=== PATIENT | female | born 1960 | race African-American/Black ===

== ENCOUNTER 2016-07-24 10:02 | Emergency (ER) | payer OTHER ==
[~2016-07-24] VITALS: Ht 167.6 cm; Wt 70.3 kg
[2016-07-24 10:50] LABS: Basophils # (auto) 0 uL; Basophils % (auto) 0.7 % (0.0-2.0); Eosinophils # (auto) 0 uL; Eosinophils % (auto) 0.7 % (0.0-7.0); Hematocrit 40.3 % (36.0-46.0); Hemoglobin 12.8 g/dL (12.2-16.2); Lymphocytes # (auto) 1.4 uL; Lymphocytes % (auto) 22.1 % (10.0-50.0); Mean Corpuscular Hemoglobin 29.1 pg (28.0-32.0); Mean Corpuscular Hgb Conc. 31.7 g/dL (32.0-36.0); Mean Corpuscular Volume 91.6 fL (80.0-100.0); Mean Platelet Volume 8.9 fL (7.4-10.4); Monocytes # (auto) 0.5 uL; Monocytes % (auto) 7.1 % (0.0-12.0); Neutrophils # (auto) 4.5 uL; Neutrophils % (auto) 69.4 % (37.0-80.0); Platelet Count (auto) 276 10^3/uL (140-450); Red Cell Distribution Width 14.4 % (11.6-16.0); White Blood Cell 6.5 10^3/uL (4.4-10.8)
[2016-07-24 11:22] LABS: Albumin 3.6 g/dL (3.4-5.0); BUN/Creatinine Ratio 4.6; Bilirubin, Total 0.3 mg/dL (0.2-1.0); Calcium 9.7 mg/dL (8.5-10.1); Magnesium 2.3 mg/dL (1.6-2.6); Potassium 3.5 mmol/L (3.5-5.1); Total Protein 9.6 g/dL (6.4-8.2)
[2016-07-24 12:04] LABS: INR 0.99 (0.9-1.15); Partial Thromboplastin Time 24.9 sec (22.64-33.71); Prothrombin Time 10.2 sec (9.37-12.3)
[2016-07-24 12:16] LABS: B-Type Natriuretic Peptide 9.51 pg/mL (0-100)
[2016-07-24 12:38] LABS: Temperature: 22.5 C (20.0-25.0)
[2016-07-24] MEDS ORDERED: SODIUM CHLORIDE 0.9% 500 ML IV ONE (13:15)
[2016-07-24 13:29] VITALS: BP 115/73
== END 2016-07-24 14:56 | disposition home or self-care (01) ==
LOC: EDBD 10:02 → ER 10:09
DX: R11.2 Nausea with vomiting, unspecified (principal); I12.0 Hypertensive chronic kidney disease with stage 5 chronic kidney disease or end stage renal disease; N18.6 End stage renal disease; Z99.2 Dependence on renal dialysis; Z88.6 Allergy status to analgesic agent
CPT/HCPCS: 36415; 71010; 80053; 83735; 83880; 84443; 84484; 85025; 85610; 85730; 93005; 96360

== ENCOUNTER 2018-03-24 14:27 | Emergency (ER) | payer OTHER ==
[~2018-03-24] VITALS: Ht 167.6 cm; Wt 88.5 kg
[2018-03-24] MEDS ORDERED: ONDANSETRON HCL 4 MG/2 ML VIAL IV ONE (14:45)
[2018-03-24] MEDS ORDERED: ASPirin 81 mg TAB PO ONE (14:45)
[2018-03-24] MEDS ORDERED: NITROGLYCERIN 0.4 MG SL TAB SL ONE (14:45)
[2018-03-24] MEDS ORDERED: MORPHINE SULFATE 4 MG/ML SYR/VIAL IV ONE (14:45)
[2018-03-24 15:05] LABS: Basophils # (auto) 0 uL; Basophils % (auto) 0.7 % (0.0-2.0); Eosinophils # (auto) 0.1 uL; Hematocrit 29.7 % (36.0-46.0); Hemoglobin 9.9 g/dL (12.2-16.2); Lymphocytes # (auto) 1.2 uL; Lymphocytes % (auto) 29.5 % (10.0-50.0); Mean Corpuscular Hemoglobin 29.9 pg (28.0-32.0); Mean Corpuscular Hgb Conc. 33.2 g/dL (32.0-36.0); Monocytes # (auto) 0.5 uL; Monocytes % (auto) 12.4 % (0.0-12.0); Neutrophils # (auto) 2.2 uL; Neutrophils % (auto) 55.4 % (37.0-80.0); Nucleated Red Blood Cells % 0.1 %; Platelet Count (auto) 167 10^3/uL (140-450); Red Blood Cells 3.29 10^6/uL (4.0-5.20)
[2018-03-24] MEDS: cloNIDine HCL 0.1 MG TAB PO ONE ×2 (15:13→16:39)
[2018-03-24 15:23] LABS: Albumin 2.8 g/dL (3.4-5.0); Magnesium 2.3 mg/dL (1.6-2.6); Potassium 3.3 mmol/L (3.5-5.1)
[2018-03-24 15:28] LABS: Bilirubin, Total 0.3 mg/dL (0.2-1.0); Total Protein 7.3 g/dL (6.4-8.2)
[2018-03-24] MEDS ORDERED: POTASSIUM EFFERVESENT TAB 25 MEQ PO ONE (16:00)
[2018-03-24 19:11] VITALS: BP 122/74
== END 2018-03-24 19:19 | disposition short-term general hospital (02) ==
LOC: ER 14:27
DX: R07.89 Other chest pain (principal); I12.0 Hypertensive chronic kidney disease with stage 5 chronic kidney disease or end stage renal disease; N18.6 End stage renal disease; Z99.2 Dependence on renal dialysis; Z88.6 Allergy status to analgesic agent; Z88.8 Allergy status to other drugs, medicaments and biological substances
CPT/HCPCS: 36415; 71045; 80053; 83735; 84484; 85025; 93005; 94761; 96374; 96375; 99285; J2270; J2405

== ENCOUNTER 2018-09-28 21:21 | Emergency (ER) | payer OTHER ==
[~2018-09-28] VITALS: Ht 167.6 cm; Wt 70.3 kg
[2018-09-28 21:30] VITALS: BP 197/87
[2018-09-28] MEDS: cloNIDine HCL 0.1 MG TAB PO ONE ×2 (22:10→22:11)
[2018-09-28] MEDS: cloNIDine HCL 0.1 MG TAB ONE (22:11)
[2018-09-28 22:56] LABS: Basophils # (auto) 0 uL; Basophils % (auto) 0.6 % (0.0-2.0); Eosinophils # (auto) 0.1 uL; Eosinophils % (auto) 1.4 % (0.0-7.0); Hematocrit 36.2 % (36.0-46.0); Hemoglobin 11.7 g/dL (12.2-16.2); Lymphocytes # (auto) 1.3 uL; Lymphocytes % (auto) 35.9 % (10.0-50.0); Mean Corpuscular Hemoglobin 29.9 pg (28.0-32.0); Mean Corpuscular Hgb Conc. 32.4 g/dL (32.0-36.0); Mean Corpuscular Volume 92.3 fL (80.0-100.0); Monocytes # (auto) 0.7 uL; Monocytes % (auto) 17.7 % (0.0-12.0); Neutrophils # (auto) 1.6 uL; Neutrophils % (auto) 44.4 % (37.0-80.0); Nucleated Red Blood Cells % 0.1 %; Platelet Count (auto) 174 10^3/uL (140-450); Potassium 3.7 mmol/L (3.5-5.1); Red Blood Cells 3.92 10^6/uL (4.0-5.20); Red Cell Distribution Width 18.4 % (11.8-14.3); White Blood Cell 3.7 10^3/uL (4.4-10.8)
[2018-09-28 22:59] LABS: Albumin 3.5 g/dL (3.4-5.0); Calcium 8.9 mg/dL (8.5-10.1)
[2018-09-28 23:04] LABS: BUN/Creatinine Ratio 4.1; Bilirubin, Total 0.3 mg/dL (0.2-1.0); Total Protein 8.4 g/dL (6.4-8.2)
== END 2018-09-29 | disposition left against medical advice (07) ==
LOC: ER 21:21
DX: R51 Headache (principal); R04.0 Epistaxis; Z53.21 Procedure and treatment not carried out due to patient leaving prior to being seen by health care provider
CPT/HCPCS: 36415; 80053; 85025

== ENCOUNTER 2019-05-19 00:08 | Emergency (ER) | payer MEDICARE, OTHER ==
[~2019-05-19] VITALS: Ht 167.6 cm; Wt 68.9 kg
[2019-05-19 01:38] LABS: Albumin 3.4 g/dL (3.4-5.0); BUN/Creatinine Ratio 5.2; Magnesium 2.5 mg/dL (1.6-2.6); Potassium 5.3 mmol/L (3.5-5.1)
[2019-05-19 01:40] LABS: Bilirubin, Total 0.4 mg/dL (0.2-1.0); Total Protein 8.5 g/dL (6.4-8.2)
[2019-05-19 01:42] LABS: Hematocrit 33.3 % (36.0-46.0); Hemoglobin 10.8 g/dL (12.2-16.2); Mean Corpuscular Hemoglobin 29.1 pg (28.0-32.0); Mean Corpuscular Hgb Conc. 32.3 g/dL (32.0-36.0); Mean Corpuscular Volume 90.3 fL (80.0-100.0); Platelet Count (auto) 189 10^3/uL (140-450); Red Blood Cells 3.69 10^6/uL (4.0-5.20); Red Cell Distribution Width 16.1 % (11.8-14.3); White Blood Cell 5.3 10^3/uL (4.4-10.8)
[2019-05-19 01:49] LABS: Band Neutrophils % (manual) 0; Basophils % (manual) 0 (0.0-2.0); Blast Cells 0; Metamyelocytes % 0; Myelocytes % 0; Promyelocytes % 0; Reactive Lymphocytes 0
[2019-05-19] MEDS ORDERED: MORPHINE SULFATE 4 MG/ML SYR/VIAL IV ONE (02:45)
[2019-05-19] MEDS ORDERED: ONDANSETRON HCL 4 MG/2 ML VIAL IV ONE (02:45)
[2019-05-19 03:20] VITALS: BP 180/75
[2019-05-19 05:46] LABS: Eosinophils % (manual) 3 (0-7); Lymphocytes % (manual) 31 (10.0-50.0); Monocytes % (manual) 16 (0-12)
== END 2019-05-19 03:30 | disposition home or self-care (01) ==
LOC: ER 00:10
DX: G43.909 Migraine, unspecified, not intractable, without status migrainosus (principal); I12.0 Hypertensive chronic kidney disease with stage 5 chronic kidney disease or end stage renal disease; N18.6 End stage renal disease; E87.5 Hyperkalemia; Z99.2 Dependence on renal dialysis
CPT/HCPCS: 36415; 70450; 80053; 83735; 85007; 85027; 93005; 96374; 96375; 99284; J2270; J2405

== ENCOUNTER 2019-05-19 08:57 | Emergency (ER) | payer MEDICARE, OTHER ==
[~2019-05-19] VITALS: Ht 167.6 cm; Wt 68.0 kg
[2019-05-19 09:16] VITALS: BP 210/86
== END 2019-05-19 11:39 | disposition left against medical advice (07) ==
LOC: ER 08:57 → EDBD 08:57 → ER 11:39
DX: G43.909 Migraine, unspecified, not intractable, without status migrainosus (principal); I12.0 Hypertensive chronic kidney disease with stage 5 chronic kidney disease or end stage renal disease; N18.6 End stage renal disease; Z99.2 Dependence on renal dialysis; Z88.5 Allergy status to narcotic agent; Z88.8 Allergy status to other drugs, medicaments and biological substances
CPT/HCPCS: 93005

== ENCOUNTER 2021-07-23 07:49 | Emergency (ER) | payer MEDICARE, OTHER ==
[~2021-07-23] VITALS: Ht 167.6 cm; Wt 76.2 kg
[2021-07-23] MEDS ORDERED: cloNIDine HCL 0.1 MG TAB PO ONE (08:15)
[2021-07-23 09:41] LABS: Basophils # (auto) 0 10 ^3/uL (0-0.2); Basophils % (auto) 0.8 % (0.0-2.0); Eosinophils # (auto) 0.1 10 ^3/uL (0-0.8); Eosinophils % (auto) 1.3 % (0.0-7.0); Hematocrit 30.7 % (36.0-46.0); Hemoglobin 9.8 g/dL (12.2-16.2); Lymphocytes # (auto) 0.8 10 ^3/uL (0.4-5.4); Lymphocytes % (auto) 20.3 % (10.0-50.0); Mean Corpuscular Hemoglobin 28.8 pg (28.0-32.0); Mean Corpuscular Hgb Conc. 31.9 g/dL (32.0-36.0); Mean Corpuscular Volume 90.2 fL (80.0-100.0); Monocytes # (auto) 0.6 10 ^3/uL (0-1.3); Monocytes % (auto) 15.2 % (0.0-12.0); Neutrophils # (auto) 2.6 10 ^3/uL (1.6-8.6); Neutrophils % (auto) 62.4 % (37.0-80.0); Nucleated Red Blood Cells % 0.1 %; Red Blood Cells 3.41 10^6/uL (4.0-5.20); Red Cell Distribution Width 15.6 % (11.8-14.3); White Blood Cell 4.1 10^3/uL (4.4-10.8)
[2021-07-23 09:57] LABS: Calcium 8.6 mg/dL (8.5-10.1); Potassium 3.6 mmol/L (3.5-5.1)
[2021-07-23 10:00] LABS: Albumin 3.3 g/dL (3.4-5.0); BUN/Creatinine Ratio 3.8; Bilirubin, Total 0.4 mg/dL (0.2-1.0); Total Protein 8.2 g/dL (6.4-8.2)
[2021-07-23] MEDS ORDERED: HYDROcodone-ACET 5/325MG TAB PO ONE (12:45)
[2021-07-23 14:00] VITALS: BP 179/81
[2021-07-23] MEDS ORDERED: ACET5SOL5 PO (14:38)
== END 2021-07-23 16:17 | disposition home or self-care (01) ==
LOC: ER 07:49 → EDBD 07:49 → ER 15:44
DX: R51.9 Headache, unspecified (principal); E87.8 Other disorders of electrolyte and fluid balance, not elsewhere classified; I12.0 Hypertensive chronic kidney disease with stage 5 chronic kidney disease or end stage renal disease; N18.6 End stage renal disease; R42 Dizziness and giddiness; Z90.710 Acquired absence of both cervix and uterus; Z88.6 Allergy status to analgesic agent
CPT/HCPCS: 36415; 70450; 80053; 84484; 85025; 93005

== ENCOUNTER → 2021-10-15 | Emergency (ER) | payer OTHER, MEDICARE ==
[~2021-10-15] VITALS: Ht 167.6 cm; Wt 74.8 kg
[~2021-10-15] MED LIST: ATORVASTATIN 20 MG TAB PO SCH; BENAZEPRIL HCL 10 MG TAB PO ONE; BENAZEPRIL HCL 10 MG TAB PO SCH; BUMETANIDE 2.5mg/10ml (0.25 mg/ml) INJ IV ONE; BUMETANIDE 2.5mg/10ml (0.25 mg/ml) INJ IV SCH; DOCUSATE SOD 100 MG CAP PO PRN; ENOXAPARIN SOD 40 MG/0.4 ML SYRINGE SC SCH; HEPARIN SODIUM (PORCINE) 5000 UNITS/ML 1ML VIAL SC SCH; ISOSORBIDE MONONITRATE 20 MG TAB PO SCH; LABETALOL HCL 200 MG TAB PO SCH; LABETALOL HCL 5 MG/ML 4ML SYRINGE IV PRN; LORazepam 0.5 MG TAB PO PRN; LORazepam 2MG/ML-1ML VIAL IV ONE; MORPHINE SULFATE INJECTION 2 MG/ML SYRG IV PRN; NIFEdipine ER 30 MG TAB PO ONE; NIFEdipine ER 30 MG TAB PO SCH; NITROGLYCERIN 0.4 MG SL TAB SL PRN; ONDANSETRON HCL 4 MG/2 ML VIAL IV PRN; PANTOPRAZOLE 40 MG/10 ML VIAL INJ IV ONE; PANTOPRAZOLE 40 MG/10 ML VIAL INJ IV SCH; hydrALAZINE HCL 20 MG/ML VL IV PRN; oxyCODONE HCL 5MG TAB PO PRN
[2021-10-15 12:01] LABS: Basophils # (auto) 0 10 ^3/uL (0-0.2); Basophils % (auto) 0.8 % (0.0-2.0); Eosinophils # (auto) 0 10 ^3/uL (0-0.8); Hematocrit 34.4 % (36.0-46.0); Hemoglobin 11.3 g/dL (12.2-16.2); Lymphocytes # (auto) 0.7 10 ^3/uL (0.4-5.4); Lymphocytes % (auto) 19.2 % (10.0-50.0); Mean Corpuscular Hgb Conc. 32.8 g/dL (32.0-36.0); Mean Corpuscular Volume 88.4 fL (80.0-100.0); Monocytes # (auto) 0.8 10 ^3/uL (0-1.3); Neutrophils # (auto) 2.2 10 ^3/uL (1.6-8.6); Neutrophils % (auto) 57.7 % (37.0-80.0); Nucleated Red Blood Cells % 0.2 %; Red Blood Cells 3.89 10^6/uL (4.0-5.20); Red Cell Distribution Width 16.8 % (11.8-14.3); White Blood Cell 3.9 10^3/uL (4.4-10.8)
[2021-10-15 12:09] LABS: Monocytes % (auto) 21.3 % (0.0-12.0)
[2021-10-15 12:50] LABS: Calcium 8.6 mg/dL (8.5-10.1); Potassium 3.7 mmol/L (3.5-5.1)
[2021-10-15 12:53] LABS: Albumin 3.4 g/dL (3.4-5.0); BUN/Creatinine Ratio 2.9
[2021-10-15 12:56] LABS: Bilirubin, Total 0.6 mg/dL (0.2-1.0); Total Protein 8.1 g/dL (6.4-8.2)
[2021-10-15 20:20] VITALS: BP 171/73
== END | disposition left against medical advice (07) ==
LOC: EDUNIT# 09:53 → ER 10:05 → EDBD 10:05 → UNDOADMIN 14:01 → TELE 14:01
DX: R55 Syncope and collapse (principal); I16.0 Hypertensive urgency; E87.8 Other disorders of electrolyte and fluid balance, not elsewhere classified; I12.0 Hypertensive chronic kidney disease with stage 5 chronic kidney disease or end stage renal disease; N18.6 End stage renal disease; Z99.2 Dependence on renal dialysis; Z90.710 Acquired absence of both cervix and uterus; Z90.89 Acquired absence of other organs; Z20.822 Contact with and (suspected) exposure to COVID-19
CPT/HCPCS: 36415; 70450; 71045; 80053; 83880; 84484; 85025; 87426; 93005; 93886; 96374; 96375; 99285; C9113; J2060

== ENCOUNTER 2022-07-08 07:22 | Emergency (ER) | payer MEDICARE, OTHER ==
[~2022-07-08] VITALS: Ht 170.2 cm; Wt 77.0 kg
[2022-07-08 08:05] LABS: Hematocrit 35.8 % (36.0-46.0); Hemoglobin 11.4 g/dL (12.2-16.2); Mean Corpuscular Hemoglobin 29.3 pg (28.0-32.0); Mean Corpuscular Volume 91.6 fL (80.0-100.0); Red Blood Cells 3.91 10^6/uL (4.0-5.20); Red Cell Distribution Width 17.4 % (11.8-14.3); White Blood Cell 5.1 10^3/uL (4.4-10.8)
[2022-07-08 08:08] LABS: Basophils % (manual) 0 (0.0-2.0); Blast Cells 0; Myelocytes % 0; Promyelocytes % 0; Reactive Lymphocytes 0
[2022-07-08 08:19] LABS: Albumin 3.7 g/dL (3.4-5.0); Calcium 8.6 mg/dL (8.5-10.1); Potassium 3.5 mmol/L (3.5-5.1)
[2022-07-08 08:22] LABS: BUN/Creatinine Ratio 4.3; Bilirubin, Total 0.8 mg/dL (0.2-1.0); Total Protein 8.1 g/dL (6.4-8.2)
[2022-07-08] MEDS ORDERED: HYDROmorphone HCL 2 MG/ML VL/or syr IV ONE (08:30)
[2022-07-08] MEDS ORDERED: hydrALAZINE HCL 20 MG/ML VL IV ONE ×2 (08:45→12:15)
[2022-07-08 09:23] LABS: Band Neutrophils % (manual) 1; Eosinophils % (manual) 1 (0-7); Lymphocytes % (manual) 12 (10.0-50.0); Metamyelocytes % 2; Monocytes % (manual) 17 (0-12)
[2022-07-08] MEDS ORDERED: amLODIPine BESYLATE 5 MG TAB PO ONE (12:15)
[2022-07-08] MEDS ORDERED: ONDANSETRON HCL 4 MG/2 ML VIAL IV ONE (12:45)
[2022-07-08 14:01] VITALS: BP 161/76
== END 2022-07-08 14:40 | disposition home or self-care (01) ==
LOC: EDBD 07:22 → ER 07:22
DX: I16.0 Hypertensive urgency (principal); I12.0 Hypertensive chronic kidney disease with stage 5 chronic kidney disease or end stage renal disease; N18.6 End stage renal disease; Z90.710 Acquired absence of both cervix and uterus; Z88.6 Allergy status to analgesic agent; Z88.8 Allergy status to other drugs, medicaments and biological substances; Z20.822 Contact with and (suspected) exposure to COVID-19
CPT/HCPCS: 36415; 70450; 80053; 84484; 85007; 85027; 87426; 93005; 96374; 96375; 96376; 99285; J0360; J1170; J2405

== ENCOUNTER 2023-03-05 17:42 | Inpatient (IN) | payer OTHER ==
[~2023-03-05] VITALS: Ht 167.6 cm; Wt 84.6 kg
[2023-03-05] MEDS ORDERED: dilTIAZem 25 MG/5 ML VIAL IV ONE (18:15)
[2023-03-05 18:18] VITALS: PULSE 81; RESP 14; O2SAT 100
[2023-03-05 18:46] LABS: Hematocrit 30.7 % (36.0-46.0); Hemoglobin 10.2 g/dL (12.2-16.2); Mean Corpuscular Hemoglobin 29.7 pg (28.0-32.0); Mean Corpuscular Hgb Conc. 33.3 g/dL (32.0-36.0); Mean Corpuscular Volume 89.2 fL (80.0-100.0); Red Blood Cells 3.44 10^6/uL (4.0-5.20); Red Cell Distribution Width 15.5 % (11.8-14.3); White Blood Cell 4.3 10^3/uL (4.4-10.8)
[2023-03-05 18:50] LABS: Band Neutrophils % (manual) 0; Basophils % (manual) 0 (0.0-2.0); Blast Cells 0; Metamyelocytes % 0; Myelocytes % 0; Promyelocytes % 0; Reactive Lymphocytes 0
[2023-03-05 18:59] LABS: Alanine Aminotransferase 10 U/L (7-40); Albumin 3.6 g/dL (3.2-4.8); Alkaline Phosphatase 54 U/L (46-116); Anion Gap 6 (5-15); Aspartate Aminotransferase 17 U/L (13-40); BUN/Creatinine Ratio 2.6 (10.0-20.0); Bilirubin, Total 0.4 mg/dL (0.2-1.0); Blood Urea Nitrogen 12 mg/dL (9-23); Calcium 9.2 mg/dL (8.7-10.4); Carbon Dioxide 36 mmol/L (20-30); Chloride 95 mmol/L (98-107); Glucose 105 mg/dL (74-106); Potassium 3.7 mmol/L (3.5-5.1); Sodium 137 mmol/L (136-145); Total Protein 7.6 g/dL (5.7-8.2)
[2023-03-05 19:21] LABS: Anisocytosis Slight; Eosinophils % (manual) 2 (0-7); Lymphocytes % (manual) 21 (10.0-50.0); Macrocytosis Slight; Monocytes % (manual) 18 (0-12); Ovalocytes FEW; Platelet Estimate Adequate
[2023-03-05 19:30] VITALS: PULSE 84; RESP 84; O2SAT 100
[2023-03-05] MEDS ORDERED: PROCHLORPERAZINE EDISYLATE 5 MG/ML 2ML VIAL IM ONE (20:30)
[2023-03-05] MEDS ORDERED: ONDANSETRON HCL 4 MG/2 ML VIAL IV PRN (20:45)
[2023-03-05] MEDS ORDERED: DOCUSATE SOD 100 MG CAP PO PRN (20:45)
[2023-03-05] MEDS ORDERED: IBUPROFEN 600 MG TAB PO PRN (20:45)
[2023-03-05] MEDS: SODIUM CHLOR 0.9% PF (SALINE LOCK) 10ML VIAL/SYR IV SCH (21:19)
[2023-03-05] MEDS: FAMOTIDINE (10MG/ML) 2ML VL IV SCH (21:21)
[2023-03-05] MEDS: HEPARIN SODIUM (PORCINE) 5000 UNITS/ML 1ML VIAL SC SCH (21:23)
[2023-03-05] MEDS ORDERED: METOPROLOL TARTRATE 50 MG TAB PO SCH (22:00)
[2023-03-05] MEDS ORDERED: TEMAZEPAM 15 MG CAP PO PRN (22:00)
[2023-03-05] MEDS: hydrALAZINE HCL 20 MG/ML VL IV PRN (22:38)
[2023-03-05] MEDS ORDERED: NITROGLYCERIN 0.4 MG SL TAB SL PRN (22:45)
[2023-03-06] MEDS: hydrALAZINE HCL 20 MG/ML VL IV PRN ×3 (04:22→12:55)
[2023-03-06 05:23] LABS: Basophils # (auto) 0.1 10 ^3/uL (0-0.2); Eosinophils # (auto) 0.1 10 ^3/uL (0-0.8); Eosinophils % (auto) 2.9 % (0.0-7.0); Hematocrit 28.2 % (36.0-46.0); Hemoglobin 9.3 g/dL (12.2-16.2); Lymphocytes # (auto) 1.2 10 ^3/uL (0.4-5.4); Lymphocytes % (auto) 22.8 % (10.0-50.0); Mean Corpuscular Hemoglobin 29.9 pg (28.0-32.0); Mean Corpuscular Hgb Conc. 33.1 g/dL (32.0-36.0); Mean Corpuscular Volume 90.2 fL (80.0-100.0); Monocytes # (auto) 0.9 10 ^3/uL (0-1.3); Monocytes % (auto) 17.3 % (0.0-12.0); Neutrophils # (auto) 2.8 10 ^3/uL (1.6-8.6); Nucleated Red Blood Cells % 0.1 %; Red Blood Cells 3.13 10^6/uL (4.0-5.20); Red Cell Distribution Width 15.8 % (11.8-14.3); White Blood Cell 5.1 10^3/uL (4.4-10.8)
[2023-03-06 05:42] LABS: Alkaline Phosphatase 49 U/L (46-116); Anion Gap 4 (5-15); BUN/Creatinine Ratio 2.5 (10.0-20.0); Blood Urea Nitrogen 14 mg/dL (9-23); Calcium 8.9 mg/dL (8.7-10.4); Carbon Dioxide 38 mmol/L (20-30); Chloride 96 mmol/L (98-107); Glucose 87 mg/dL (74-106); Potassium 3.9 mmol/L (3.5-5.1); Sodium 138 mmol/L (136-145)
[2023-03-06 05:43] LABS: Albumin 3.4 g/dL (3.2-4.8)
[2023-03-06 05:44] LABS: Alanine Aminotransferase < 9 U/L (7-40); Aspartate Aminotransferase 16 U/L (13-40); Bilirubin, Total 0.2 mg/dL (0.2-1.0); Total Protein 7.3 g/dL (5.7-8.2)
[2023-03-06] MEDS: SODIUM CHLOR 0.9% PF (SALINE LOCK) 10ML VIAL/SYR IV SCH ×3 (06:00→22:26)
[2023-03-06] MEDS: SEVELAMER 800 MG TAB PO SCH ×3 (08:58→18:52)
[2023-03-06 09:18] VITALS: PULSE 70; RESP 21; O2SAT 98
[2023-03-06] MEDS ORDERED: amLODIPine BESYLATE 5 MG TAB PO SCH (10:00)
[2023-03-06] MEDS ORDERED: LOSARTAN POTASSIUM 50 MG TAB PO ONE (10:15)
[2023-03-06] MEDS: B-COMPLEX W/ C & FOLIC ACID(NEPHROVITE TAB) PO SCH (10:24)
[2023-03-06] MEDS ORDERED: LORA-1105 PO (10:26)
[2023-03-06] MEDS ORDERED: OMEP20TA PO (10:27)
[2023-03-06] MEDS ORDERED: HYDR2TAB58 PO (10:28)
[2023-03-06] MEDS ORDERED: LOSA100T58 PO (10:29)
[2023-03-06] MEDS ORDERED: CLON0.2D6 PO (10:31)
[2023-03-06] MEDS ORDERED: NIFE90TA75 PO (10:31)
[2023-03-06] MEDS ORDERED: TERA2CAP45 PO (10:31)
[2023-03-06] MEDS: HEPARIN SODIUM (PORCINE) 5000 UNITS/ML 1ML VIAL SC SCH (10:32)
[2023-03-06 13:00] VITALS: BP 168/79; PULSE 67; RESP 17; TEMP 98.4; O2SAT 100
[2023-03-06] MEDS: cloNIDine HCL 0.1 MG TAB PO SCH ×2 (14:00→22:26)
[2023-03-06 17:00] VITALS: BP 113/33; PULSE 41; RESP 22; TEMP 98.4; O2SAT 90
[2023-03-06 20:00] VITALS: BP 169/76; PULSE 61; PULSE 65; RESP 20; TEMP 97.5; O2SAT 100
[2023-03-06 22:00] VITALS: BP 169/76; PULSE 61; RESP 20; TEMP 97.5; O2SAT 100
[2023-03-06] MEDS ORDERED: METOPROLOL TARTRATE 50 MG TAB PO SCH (22:00)
[2023-03-06] MEDS: AMIODARONE HCL 200 MG TAB PO SCH (22:25)
[2023-03-06] MEDS: APIXABAN 5 MG TAB PO SCH (22:25)
[2023-03-07] VITALS (7 sets, daily range): BP systolic 133–162; BP diastolic 55–86; PULSE 45–108; RESP 14–21; TEMP 97.6–98.4; O2SAT 95–100
[2023-03-07] MEDS: cloNIDine HCL 0.1 MG TAB PO SCH ×3 (05:56→22:32)
[2023-03-07] MEDS: SODIUM CHLOR 0.9% PF (SALINE LOCK) 10ML VIAL/SYR IV SCH ×3 (05:56→22:32)
[2023-03-07] MEDS: hydrALAZINE HCL 20 MG/ML VL IV PRN (08:43)
[2023-03-07] MEDS: SEVELAMER 800 MG TAB PO SCH ×3 (08:43→18:25)
[2023-03-07] MEDS: AZITHROMYCIN 500MG/ 250ML 250 ML IV SCH (09:42)
[2023-03-07] MEDS: LOSARTAN POTASSIUM 50 MG TAB PO SCH (09:54)
[2023-03-07] MEDS: B-COMPLEX W/ C & FOLIC ACID(NEPHROVITE TAB) PO SCH (09:54)
[2023-03-07] MEDS: APIXABAN 5 MG TAB PO SCH (09:54)
[2023-03-07] MEDS: NIFEdipine ER 30 MG TAB PO SCH (09:54)
[2023-03-07] MEDS: AMIODARONE HCL 200 MG TAB PO SCH ×2 (09:54→22:32)
[2023-03-07] MEDS: cefTRIAXone 1GM/50ML D5W 50 ML IV SCH (11:43)
[2023-03-07] MEDS: FAMOTIDINE (10MG/ML) 2ML VL IV SCH (22:31)
[2023-03-08] VITALS (12 sets, daily range): BP systolic 134–159; BP diastolic 58–109; PULSE 45–63; RESP 14–24; TEMP 97.8–98.3; O2SAT 94–100
[2023-03-08] MEDS: cloNIDine HCL 0.1 MG TAB PO SCH ×3 (06:00→21:39)
[2023-03-08 06:51] LABS: % Iron Saturation 37.5 % (15-50)
[2023-03-08 06:56] LABS: Hematocrit 25.9 % (36.0-46.0); Hemoglobin 8.7 g/dL (12.2-16.2)
[2023-03-08] MEDS: SODIUM CHLOR 0.9% PF (SALINE LOCK) 10ML VIAL/SYR IV SCH ×3 (06:59→21:39)
[2023-03-08] MEDS ORDERED: SODIUM CHL 0.9% 1000 ML BAG XX ONE (07:00)
[2023-03-08] MEDS: SEVELAMER 800 MG TAB PO SCH ×3 (08:00→18:16)
[2023-03-08] MEDS: cefTRIAXone 1GM/50ML D5W 50 ML IV SCH (09:02)
[2023-03-08] MEDS: NIFEdipine ER 30 MG TAB PO SCH (10:00)
[2023-03-08] MEDS: LOSARTAN POTASSIUM 50 MG TAB PO SCH (10:00)
[2023-03-08] MEDS: AZITHROMYCIN 500MG/ 250ML 250 ML IV SCH (10:24)
[2023-03-08] MEDS: AMIODARONE HCL 200 MG TAB PO SCH ×2 (10:25→21:39)
[2023-03-08] MEDS: B-COMPLEX W/ C & FOLIC ACID(NEPHROVITE TAB) PO SCH (10:25)
[2023-03-08] MEDS ORDERED: LIDOCAINE VISCOUS 2% 15ML UD PO ONE (14:00)
[2023-03-08] MEDS ORDERED: MIDAZOLAM HCL 2MG/2ML 2ml VIAL (1mg/ml) IV ONE (14:00)
[2023-03-08] MEDS ORDERED: fentaNYL CITRATE 100 MCG/2 ML VL IV ONE (14:00)
[2023-03-08] MEDS ORDERED: EPOETIN ALFA-EPBX 10,000 UNIT/1ML VIAL SC ONE (21:00)
[2023-03-09 05:00] VITALS: BP 151/57; PULSE 57; RESP 18; TEMP 98.1; O2SAT 95
[2023-03-09] MEDS: cloNIDine HCL 0.1 MG TAB PO SCH ×2 (05:40→16:22)
[2023-03-09] MEDS: SODIUM CHLOR 0.9% PF (SALINE LOCK) 10ML VIAL/SYR IV SCH ×2 (05:49→16:23)
[2023-03-09] MEDS ORDERED: SODIUM CHL 0.9% 1000 ML BAG XX ONE (07:00)
[2023-03-09 07:43] LABS: % Iron Saturation 36.2 % (15-50)
[2023-03-09 08:00] VITALS: PULSE 58
[2023-03-09] MEDS: SEVELAMER 800 MG TAB PO SCH ×3 (08:27→17:21)
[2023-03-09] MEDS: B-COMPLEX W/ C & FOLIC ACID(NEPHROVITE TAB) PO SCH (08:27)
[2023-03-09 08:54] VITALS: BP 167/66; PULSE 57; RESP 17; TEMP 98.2; O2SAT 100
[2023-03-09] MEDS: NIFEdipine ER 30 MG TAB PO SCH (16:21)
[2023-03-09] MEDS: LOSARTAN POTASSIUM 50 MG TAB PO SCH (16:22)
[2023-03-09] MEDS: AMIODARONE HCL 200 MG TAB PO SCH (16:23)
[2023-03-09 17:00] VITALS: BP 180/71; PULSE 60; RESP 19; TEMP 98.5; O2SAT 96
[2023-03-09 18:04] LABS: Alanine Aminotransferase 10 U/L (7-40); Albumin 3.9 g/dL (3.2-4.8); Alkaline Phosphatase 61 U/L (46-116); Anion Gap 10 (5-15); Aspartate Aminotransferase 18 U/L (13-40); Bilirubin, Total 0.4 mg/dL (0.2-1.0); Blood Urea Nitrogen 26 mg/dL (9-23); Carbon Dioxide 33 mmol/L (20-30); Chloride 97 mmol/L (98-107); Glucose 117 mg/dL (74-106); Potassium 3.6 mmol/L (3.5-5.1); Sodium 140 mmol/L (136-145); Total Protein 7.9 g/dL (5.7-8.2)
[2023-03-09 18:17] LABS: Basophils # (auto) 0 10 ^3/uL (0-0.2); Eosinophils # (auto) 0.1 10 ^3/uL (0-0.8); Eosinophils % (auto) 2.9 % (0.0-7.0); Hematocrit 28.8 % (36.0-46.0); Hemoglobin 9.6 g/dL (12.2-16.2); Lymphocytes # (auto) 0.6 10 ^3/uL (0.4-5.4); Lymphocytes % (auto) 16.8 % (10.0-50.0); Mean Corpuscular Hemoglobin 30.1 pg (28.0-32.0); Mean Corpuscular Hgb Conc. 33.4 g/dL (32.0-36.0); Monocytes # (auto) 0.5 10 ^3/uL (0-1.3); Monocytes % (auto) 13.2 % (0.0-12.0); Neutrophils # (auto) 2.3 10 ^3/uL (1.6-8.6); Neutrophils % (auto) 66.1 % (37.0-80.0); Nucleated Red Blood Cells % 0.1 %; Red Cell Distribution Width 15.6 % (11.8-14.3); White Blood Cell 3.5 10^3/uL (4.4-10.8)
[2023-03-09 18:27] VITALS: BP 143/63; PULSE 59; RESP 18; TEMP 98.5; O2SAT 96
[2023-03-09 20:00] VITALS: PULSE 60; RESP 16; O2SAT 96
== END 2023-03-09 20:03 | disposition short-term general hospital (02) | DRG 280 ==
LOC: ER 17:42 → EDUNIT# 17:42 → EDBD 17:42 → TELE 22:36 → TELE-EAST 03-06 08:10
PROVIDERS: ADMIT Nurse Practitioner Family; ATTEND Internal Medicine
PROC: B24BZZ4 Ultrasonography of Heart with Aorta, Transesophageal (ICD-10-PCS; principal; 2023-03-08)
PROC: 5A1D70Z Performance of Urinary Filtration, Intermittent, Less than 6 Hours Per Day (ICD-10-PCS; 2023-03-09)
DX: I34.0 Nonrheumatic mitral (valve) insufficiency (principal); I21.A1 Myocardial infarction type 2; I50.33 Acute on chronic diastolic (congestive) heart failure; I33.9 Acute and subacute endocarditis, unspecified; J15.9 Unspecified bacterial pneumonia; N18.6 End stage renal disease; I48.20 Chronic atrial fibrillation, unspecified; E87.3 Alkalosis; I13.2 Hypertensive heart and chronic kidney disease with heart failure and with stage 5 chronic kidney disease, or end stage renal disease; Q21.12 Patent foramen ovale; I16.0 Hypertensive urgency; D63.1 Anemia in chronic kidney disease; Z99.2 Dependence on renal dialysis; Z88.6 Allergy status to analgesic agent
CPT/HCPCS: 36415; 71045; 80053; 82728; 83540; 83550; 83735; 83880; 84443; 84484; 85007; 85014; 85018; 85025; 85027; 87040; 87278; 87340; 90935; 93005; 93306; 93312; 96372; 99152; G0378; J0696; J2250; J3490

== ENCOUNTER 2023-05-10 00:53 | Emergency (ER) | payer OTHER ==
[~2023-05-10 00:53] MED LIST changes: -ATORVASTATIN 20 MG TAB PO SCH; -BENAZEPRIL HCL 10 MG TAB PO ONE; -BENAZEPRIL HCL 10 MG TAB PO SCH; -BUMETANIDE 2.5mg/10ml (0.25 mg/ml) INJ IV ONE; -BUMETANIDE 2.5mg/10ml (0.25 mg/ml) INJ IV SCH; +CLON0.2D6 PO; -DOCUSATE SOD 100 MG CAP PO PRN; -ENOXAPARIN SOD 40 MG/0.4 ML SYRINGE SC SCH; -HEPARIN SODIUM (PORCINE) 5000 UNITS/ML 1ML VIAL SC SCH; +HYDR2TAB58 PO; -ISOSORBIDE MONONITRATE 20 MG TAB PO SCH; -LABETALOL HCL 200 MG TAB PO SCH; -LABETALOL HCL 5 MG/ML 4ML SYRINGE IV PRN; +LORA-1105 PO; -LORazepam 0.5 MG TAB PO PRN; -LORazepam 2MG/ML-1ML VIAL IV ONE; +LOSA100T58 PO; -MORPHINE SULFATE INJECTION 2 MG/ML SYRG IV PRN; +NIFE90TA75 PO; -NIFEdipine ER 30 MG TAB PO ONE; -NIFEdipine ER 30 MG TAB PO SCH; -NITROGLYCERIN 0.4 MG SL TAB SL PRN; +OMEP20TA PO; -ONDANSETRON HCL 4 MG/2 ML VIAL IV PRN; -PANTOPRAZOLE 40 MG/10 ML VIAL INJ IV ONE; -PANTOPRAZOLE 40 MG/10 ML VIAL INJ IV SCH; +TERA2CAP45 PO; -hydrALAZINE HCL 20 MG/ML VL IV PRN; -oxyCODONE HCL 5MG TAB PO PRN
[2023-05-10] MEDS ORDERED: ADENOSINE 6 MG/2 ML INJ IV ONE ×4 (00:59→01:45)
[2023-05-10 01:00] VITALS: PULSE 160; RESP 22; O2SAT 94
[2023-05-10] MEDS ORDERED: METOPROLOL TARTRATE 1MG/1ML-5ML VIAL IV ONE ×2 (01:07→01:11)
[2023-05-10] MEDS: METOPROLOL TARTRATE 1MG/1ML-5ML VIAL IV SCH ×3 (01:08→01:18)
[2023-05-10] MEDS ORDERED: dilTIAZem 125mg/125ml BAG KIT 100 ML IV SCH (01:30)
[2023-05-10] MEDS ORDERED: AMIODARONE BOLUS KIT 100 ML IV ONE (01:45)
[2023-05-10] MEDS ORDERED: fentaNYL CITRATE 100 MCG/2 ML VL IV ONE (01:45)
[2023-05-10] MEDS ORDERED: AMIODARONE 450mg/250ml AE 250 ML IV SCH (02:00)
[2023-05-10 02:43] LABS: Basophils # (auto) 0 10 ^3/uL (0-0.2); Eosinophils # (auto) 0 10 ^3/uL (0-0.8); Eosinophils % (auto) 0.4 % (0.0-7.0); Hematocrit 30.9 % (36.0-46.0); Hemoglobin 9.9 g/dL (12.2-16.2); Lymphocytes # (auto) 0.7 10 ^3/uL (0.4-5.4); Lymphocytes % (auto) 13.9 % (10.0-50.0); Mean Corpuscular Hemoglobin 30.6 pg (28.0-32.0); Mean Corpuscular Volume 95.6 fL (80.0-100.0); Monocytes # (auto) 0.4 10 ^3/uL (0-1.3); Monocytes % (auto) 9.4 % (0.0-12.0); Neutrophils # (auto) 3.6 10 ^3/uL (1.6-8.6); Neutrophils % (auto) 75.3 % (37.0-80.0); Nucleated Red Blood Cells % 0.2 %; Red Blood Cells 3.23 10^6/uL (4.0-5.20); Red Cell Distribution Width 18.1 % (11.8-14.3); White Blood Cell 4.7 10^3/uL (4.4-10.8)
[2023-05-10 02:56] LABS: INR 1.69 (0.9-1.15); Partial Thromboplastin Time 29.8 SEC (24.5-34.5); Prothrombin Time 17.1 sec (9.3-11.8)
[2023-05-10 02:58] LABS: Albumin 3.8 g/dL (3.2-4.8); Alkaline Phosphatase 55 U/L (46-116); Anion Gap 12 (5-15); Aspartate Aminotransferase 31 U/L (13-40); BUN/Creatinine Ratio 4.7 (10.0-20.0); Blood Urea Nitrogen 32 mg/dL (9-23); Calcium 8.1 mg/dL (8.7-10.4); Carbon Dioxide 29 mmol/L (20-30); Chloride 94 mmol/L (98-107); Glucose 158 mg/dL (74-106); Magnesium 2.1 mg/dL (1.6-2.6); Potassium 4.4 mmol/L (3.5-5.1); Sodium 135 mmol/L (136-145)
[2023-05-10 02:59] LABS: Bilirubin, Total 0.5 mg/dL (0.2-1.0)
[2023-05-10 03:00] LABS: Alanine Aminotransferase < 9 U/L (7-40)
[2023-05-10] MEDS ORDERED: ASPirin 325 MG TAB PO ONE (04:30)
[2023-05-10] MEDS ORDERED: ENOXAPARIN SOD 100 MG/1 ML SYRINGE SC ONE (04:30)
[2023-05-10] MEDS ORDERED: ONDANSETRON HCL 4 MG/2 ML VIAL IV ONE ×3 (05:00→15:45)
[2023-05-10 07:30] VITALS: PULSE 62; RESP 20; O2SAT 100
[2023-05-10] MEDS: AMIODARONE 450mg/250ml AE 250 ML IV SCH ×2 (08:52→11:52)
[2023-05-10] MEDS ORDERED: HYDROmorphone HCL 2 MG/ML VL/or syr IV ONE ×2 (11:45→15:45)
[2023-05-10] MEDS ORDERED: AMIODARONE HCL 200 MG TAB PO ONE (13:00)
[2023-05-10 16:30] VITALS: TEMP 97.6; O2SAT 98
[2023-05-10 16:35] VITALS: BP 159/87; PULSE 62; RESP 24
== END 2023-05-10 17:00 | disposition short-term general hospital (02) ==
LOC: ER 00:53 → EDBD 00:53 → EDUNIT# 00:53 → ER 17:00
DX: I48.92 Unspecified atrial flutter (principal); R79.89 Other specified abnormal findings of blood chemistry; I13.2 Hypertensive heart and chronic kidney disease with heart failure and with stage 5 chronic kidney disease, or end stage renal disease; N18.6 End stage renal disease; I50.9 Heart failure, unspecified; I48.91 Unspecified atrial fibrillation; Z99.2 Dependence on renal dialysis; Z90.710 Acquired absence of both cervix and uterus; Z90.89 Acquired absence of other organs; Z79.899 Other long term (current) drug therapy; Z88.5 Allergy status to narcotic agent; Z88.8 Allergy status to other drugs, medicaments and biological substances
CPT/HCPCS: 36415; 71045; 80053; 83735; 83880; 84484; 85025; 85610; 85730; 93005; 96365; 96366; 96372; 96375; 96376; 99291; J0153; J0282; J1170; J1650; J2405; J3010

== ENCOUNTER 2023-10-22 09:11 | Inpatient (IN) | payer OTHER ==
[~2023-10-22] VITALS: Ht 167.6 cm; Wt 64.2 kg
[~2023-10-22 09:11] MED LIST changes: +LOSA-535 PO; -LOSA100T58 PO; -TERA2CAP45 PO; +TERA2CAP79 PO
[2023-10-22 09:26] LABS: Basophils # (auto) 0 10 ^3/uL (0-0.2); Eosinophils # (auto) 0.1 10 ^3/uL (0-0.8); Eosinophils % (auto) 2.9 % (0.0-7.0); Hematocrit 38.9 % (36.0-46.0); Hemoglobin 12.4 g/dL (12.2-16.2); Lymphocytes # (auto) 0.6 10 ^3/uL (0.4-5.4); Lymphocytes % (auto) 16.8 % (10.0-50.0); Mean Corpuscular Hemoglobin 29.1 pg (28.0-32.0); Mean Corpuscular Volume 91.1 fL (80.0-100.0); Monocytes # (auto) 0.5 10 ^3/uL (0-1.3); Monocytes % (auto) 13.5 % (0.0-12.0); Neutrophils # (auto) 2.3 10 ^3/uL (1.6-8.6); Neutrophils % (auto) 65.8 % (37.0-80.0); Nucleated Red Blood Cells % 0.2 %; Red Blood Cells 4.27 10^6/uL (4.0-5.20); Red Cell Distribution Width 19.1 % (11.8-14.3); White Blood Cell 3.5 10^3/uL (4.4-10.8)
[2023-10-22 09:44] LABS: INR 1.96 (0.9-1.15); Partial Thromboplastin Time 36.9 SEC (24.5-34.5); Prothrombin Time 19.8 sec (9.3-11.8)
[2023-10-22 09:50] LABS: Alanine Aminotransferase 22 U/L (7-40); Albumin 4.3 g/dL (3.2-4.8); Alkaline Phosphatase 70 U/L (46-116); Anion Gap 8 (5-15); Aspartate Aminotransferase 32 U/L (13-40); BUN/Creatinine Ratio 4.3 (10.0-20.0); Blood Urea Nitrogen 17 mg/dL (9-23); Calcium 9.5 mg/dL (8.5-10.1); Carbon Dioxide 34 mmol/L (20-30); Chloride 93 mmol/L (98-107); Glucose 111 mg/dL (74-106); Potassium 4.2 mmol/L (3.5-5.1); Sodium 135 mmol/L (136-145)
[2023-10-22 09:51] LABS: Bilirubin, Total 0.6 mg/dL (0.2-1.0); Total Protein 8.6 g/dL (5.7-8.2)
[2023-10-22] MEDS: FUROSEMIDE 40 MG/4 ML VIAL IV ONE (13:59)
[2023-10-22] MEDS: NITROGLYCERIN 0.4 MG SL TAB SL ONE (13:59)
[2023-10-22] MEDS ORDERED: ONDANSETRON HCL 4 MG/2 ML VIAL IV PRN (15:15)
[2023-10-22] MEDS ORDERED: NITROGLYCERIN 0.4 MG SL TAB SL PRN (15:15)
[2023-10-22 16:02] LABS: Magnesium 2.1 mg/dL (1.6-2.6)
[2023-10-22 16:21] LABS: INR 2.02 (0.9-1.15); Prothrombin Time 20.3 sec (9.3-11.8)
[2023-10-22] MEDS: fentaNYL CITRATE 100 MCG/2 ML VL IV ONE (17:00)
[2023-10-22 18:03] VITALS: PULSE 79; RESP 20; O2SAT 95
[2023-10-22] MEDS ORDERED: COUMPOW XX (21:27)
[2023-10-22] MEDS: WARFARIN SODIUM 2.5 MG TAB PO ONE (21:45)
[2023-10-22 23:16] VITALS: BP 160/71; PULSE 67; RESP 18; TEMP 98.2; O2SAT 99
[2023-10-22] MEDS: cloNIDine HCL 0.1 MG TAB PO SCH (23:40)
[2023-10-22] MEDS: ATORVASTATIN 20 MG TAB PO SCH (23:41)
[2023-10-23] VITALS (7 sets, daily range): BP systolic 114–139; BP diastolic 55–66; PULSE 44–69; RESP 16–20; TEMP 97.3–97.6; O2SAT 97–100
[2023-10-23] MEDS ORDERED: ATOR20TA50 PO (03:42)
[2023-10-23] MEDS ORDERED: AMLO1TAB22 PO (03:42)
[2023-10-23] MEDS ORDERED: FLUC150T47 PO (03:42)
[2023-10-23] MEDS ORDERED: AMOX500C2 PO (03:42)
[2023-10-23] MEDS ORDERED: MIRT1TAB PO (03:42)
[2023-10-23] MEDS ORDERED: SEVE800T10 PO (03:42)
[2023-10-23] MEDS ORDERED: WARF-110 PO (03:42)
[2023-10-23] MEDS ORDERED: AMIO200T13 PO (03:42)
[2023-10-23] MEDS ORDERED: KETO2CRE4 TOP (03:42)
[2023-10-23] MEDS ORDERED: CEPH500C PO (03:42)
[2023-10-23 07:31] LABS: Hematocrit 34.6 % (36.0-46.0); Hemoglobin 10.8 g/dL (12.2-16.2); Mean Corpuscular Hemoglobin 28.4 pg (28.0-32.0); Mean Corpuscular Hgb Conc. 31.2 g/dL (32.0-36.0); Mean Corpuscular Volume 91.1 fL (80.0-100.0); Red Cell Distribution Width 19.2 % (11.8-14.3); White Blood Cell 3.6 10^3/uL (4.4-10.8)
[2023-10-23 07:51] LABS: Alanine Aminotransferase 14 U/L (7-40); Albumin 3.5 g/dL (3.2-4.8); Alkaline Phosphatase 55 U/L (46-116); Anion Gap 8 (5-15); Aspartate Aminotransferase 22 U/L (13-40); BUN/Creatinine Ratio 4.5 (10.0-20.0); Band Neutrophils % (manual) 0; Basophils % (manual) 0 (0.0-2.0); Blast Cells 0; Calcium 8.4 mg/dL (8.5-10.1); Carbon Dioxide 33 mmol/L (20-30); Chloride 96 mmol/L (98-107); Cholesterol 139 mg/dL (< 200); Glucose 81 mg/dL (74-106); LDL Cholesterol 71 mg/dL (< 100); Metamyelocytes % 0; Myelocytes % 0; Promyelocytes % 0; Reactive Lymphocytes 0; Sodium 137 mmol/L (136-145); Triglycerides 81 mg/dL (< 150)
[2023-10-23 07:52] LABS: Bilirubin, Total 0.4 mg/dL (0.2-1.0); HDL Cholesterol 45 mg/dL (40-59); Total Protein 7.1 g/dL (5.7-8.2)
[2023-10-23 08:16] LABS: INR 2.24 (0.9-1.15); Prothrombin Time 22.4 sec (9.3-11.8)
[2023-10-23 08:22] LABS: Blood Urea Nitrogen 29 mg/dL (9-23)
[2023-10-23 08:23] LABS: Potassium 5.8 mmol/L (3.5-5.1)
[2023-10-23 08:41] LABS: Eosinophils % (manual) 2 (0-7); Lymphocytes % (manual) 21 (10.0-50.0); Monocytes % (manual) 18 (0-12)
[2023-10-23 08:42] LABS: Platelet Estimate Adequate
[2023-10-23] MEDS: DEXTROSE (50%) 50ML SYRG IV ONE (09:23)
[2023-10-23] MEDS: SODIUM ZIRCONIUM CYCL 10 GM PAK PO ONE (09:29)
[2023-10-23] MEDS: NIFEdipine ER 30 MG TAB PO SCH (09:32)
[2023-10-23] MEDS: PANTOPRAZOLE 40 MG TAB PO SCH (09:32)
[2023-10-23] MEDS: DOCUSATE SOD 100 MG CAP PO SCH (09:33)
[2023-10-23] MEDS: ASPirin 81 mg TAB PO SCH (09:33)
[2023-10-23] MEDS: LOSARTAN POTASSIUM 50 MG TAB PO SCH (09:33)
[2023-10-23] MEDS: InsuLIN REG 1unit/0.01ml Soln (100units/ml) IV ONE (09:42)
[2023-10-23] MEDS ORDERED: hydrALAZINE HCL 20 MG/ML VL IV PRN (13:45)
[2023-10-23] MEDS: WARFARIN SODIUM 2 MG TAB PO ONE (16:52)
[2023-10-23] MEDS: SODIUM CHL 0.9% 1000 ML BAG XX ONE (18:05)
[2023-10-23] MEDS ORDERED: AMIODARONE HCL 200 MG TAB PO SCH (22:00)
== END 2023-10-23 20:38 | disposition home or self-care (01) | DRG 291 ==
LOC: ER 09:11 → TELE 16:51 → TELE-WESTW 22:28
PROVIDERS: ADMIT Nurse Practitioner Family; ATTEND Nurse Practitioner Family
PROC: 5A1D70Z Performance of Urinary Filtration, Intermittent, Less than 6 Hours Per Day (ICD-10-PCS; principal; 2023-10-23)
DX: I13.2 Hypertensive heart and chronic kidney disease with heart failure and with stage 5 chronic kidney disease, or end stage renal disease (principal); I50.33 Acute on chronic diastolic (congestive) heart failure; N18.6 End stage renal disease; I24.9 Acute ischemic heart disease, unspecified; I48.20 Chronic atrial fibrillation, unspecified; E87.20 Acidosis, unspecified; E87.5 Hyperkalemia; D63.1 Anemia in chronic kidney disease; E78.5 Hyperlipidemia, unspecified; I34.0 Nonrheumatic mitral (valve) insufficiency; Z95.1 Presence of aortocoronary bypass graft; Z95.2 Presence of prosthetic heart valve; Z99.2 Dependence on renal dialysis; Z88.6 Allergy status to analgesic agent; Z90.710 Acquired absence of both cervix and uterus; Z79.01 Long term (current) use of anticoagulants; Z82.49 Family history of ischemic heart disease and other diseases of the circulatory system; Z88.5 Allergy status to narcotic agent
CPT/HCPCS: 36415; 71045; 74176; 80053; 80061; 82962; 83690; 83735; 83880; 84132; 84484; 85007; 85025; 85027; 85610; 85730; 87081; 90935; 93005; 99291; G0378; J1815

== ENCOUNTER 2024-11-22 21:00 | Emergency (ER) | payer OTHER ==
[~2024-11-22] VITALS: Ht 167.6 cm; Wt 64.0 kg
[~2024-11-22 21:00] MED LIST changes: +AMIO200T13 PO; +AMLO1TAB22 PO; +AMOX500C2 PO; +APIX2.5T PO; +ATOR20TA50 PO; +CEPH500C PO; +COUMPOW XX; +FLUC150T47 PO; +KETO2CRE4 TOP; +MIRT1TAB PO; +NIFE1TAB31 PO; +SEVE800T10 PO; +WARF-110 PO
--- NOTE | 2024-11-22 21:41 | ED.PDOC ---
SOB-HPI HPI Comments 63-year-old female with PMHx CKF presents with a chief complaint of SOB x 3 days with associated headache, and nausea. Patient states that she has been having increasing SOB over the past few days. Patient is a dialysis patient and states that she had a full session this morning, but denies any relief of the SOB. Patient has dialysis every Wed/Wed/Wednesday. 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 History: Uterine Fibroids Family History Family History: Reviewed,noncontributory to illness Social History Smoker: Non-Smoker Alcohol: Denies ETOH Use Drugs: Denies Drug Use Lives In: Home Constitutional: denies: chills, diaphoresis, fatigue, fever, malaise, sweats, weakness, others EENTM: denies: blurred vision, double vision, ear bleeding, ear discharge, ear drainage, ear pain, ear ringing, eye pain, eye redness, hearing loss, mouth pain, mouth swelling, nasal discharge, nose bleeding, nose congestion, nose pain, photophobia, tearing, throat pain, throat swelling, voice changes, others Respiratory: reports: SOB at rest, shortness of breath; denies: cough, hemoptysis, orthopnea, SOB with excertion, stridor, wheezing, others Cardiovascular: denies: chest pain, dizzy spells, diaphoresis, Dyspnea on exertion, edema, irregular heart beat, left arm pain, lightheadedness, palpitations, PND, syncope, others Gastrointestinal: reports: nausea; denies: abdomen distended, abdominal pain, blood streaked bowels, constipated, diarrhea, dysphagia, difficulty swallowing, hematemesis, melena, poor appetite, poor fluid intake, rectal bleeding, rectal pain, vomiting, others Genitourinary: denies: abnormal vagina bleeding, burning, dyspareunia, dysuria, flank pain, frequency, hematuria, incontinence, pain, , vagina discharge, urgency, others Neurological: reports: headache; denies: dizziness, fainting, left sided numbness, left sided weakness, numbness, paresthesia, pre-existing deficit, right sided numbness, right sided weakness, seizure, speech problems, tingling, tremors, weakness, others Musculoskeletal: denies: back pain, gout, joint pain, joint swelling, muscle pain, muscle stiffness, neck pain, others Integumetry: denies: bruises, change in color, change in hair/nails, dryness, laceration, lesions, lumps, rash, wounds, others Allergic/Immunocompromised: denies: Difficulty Healing, Frequent Infections, Hives, Itching, others Hematologic/Lymphatic: denies: anemia, blood clots, easy bleeding, easy bruising, swollen glands, others Endocrine: denies: excessive hunger, excessive sweating, excessive thirst, excessive urination, flushing, intolerance to cold, intolerance to heat, unexplained weight gain, unexplained weight loss, others Psychiatric: denies: anxiety, bipolar disorder, depression, hopeless, panic disorder, schizophrenia, sleepless, suicidal, others All Other Systems: Reviewed and Negative Physical Exam General Appearance: No Apparent Distress, Normal HEENT: Normal ENT Inspection, Pharynx Normal, TMs Normal Neck: Full Range of Motion, Non-Tender, Normal, Normal Inspection Respiratory: Chest Non-Tender, Lungs Clear, No Accessory Muscle Use, No Respiratory Distress, Normal Breath Sounds Cardiovascular: No Edema, No JVD, No Murmur, No Gallop, Normal Peripheral Pulses, Regular Rate/Rhythm Breast Exam: Deferred Gastrointestinal: No Organomegaly, Non Tender, No Pulsatile Mass, Normal Bowel Sounds, Soft Genitalia: Deferred Pelvic: Deferred Rectal: Deferred Extremities: No calf tenderness, Normal capillary refill, Normal inspection, Normal range of motion, Non-tender, No pedal edema Musculoskeletal : Apperance: Normal Neurologic: Alert, sound technician supervisor II-XII nml as Tested, No Motor Deficits, Normal Affect, Normal Mood, No Sensory Deficits Cerebellar Function: Normal Reflexes: Normal Skin: Dry, Normal Color, Warm Lymphatic: No Adenopathy Was a procedure done? Was a procedure done?: No Differential Dx Differential Diagnosis: Asthma, Bronchitis, Hyponatremia, Myocardial infarction, Pneumonia X-Ray, Labs, Meds, VS Vital Signs Date Time Temp Pulse Resp B/P (MAP) Pulse Ox O2 Delivery O2 Flow Rate FiO2 11/22/24 21:38 64 6/11/25 21:20 98.6 62 12 141/62 (88) 100 98.6 Lab Test 11/22/24 22:56 11/22/24 22:05 Range/Units Troponin I High Sensitivity 21 20 </=34 ng/L White Blood Count 3.9 L 4.4-10.8 10^3/uL Red Blood Count 3.69 L 4.0-5.20 10^6/uL Hemoglobin 11.1 L 12.2-16.2 g/dL Hematocrit 33.3 L 36.0-46.0 % Mean Corpuscular Volume 90.2 80.0-100.0 fL Mean Corpuscular Hemoglobin 30.2 28.0-32.0 pg Mean Corpuscular Hemoglobin Concent 33.4 32.0-36.0 g/dL Red Cell Distribution Width 16.1 H 11.8-14.3 % Platelet Count 184 140-450 10^3/uL Mean Platelet Volume 9.3 6.9-10.8 fL Neutrophils (%) (Auto) 60.9 37.0-80.0 % Lymphocytes (%) (Auto) 23.2 10.0-50.0 % Monocytes (%) (Auto) 14.6 H 0.0-12.0 % Eosinophils (%) (Auto) 0.6 0.0-7.0 % Basophils (%) (Auto) 0.7 0.0-2.0 % Neutrophils # (Auto) 2.4 1.6-8.6 10 ^3/uL Lymphocytes # (Auto) 0.9 0.4-5.4 10 ^3/uL Monocytes # (Auto) 0.6 0-1.3 10 ^3/uL Eosinophils # (Auto) 0 0-0.8 10 ^3/uL Basophils # (Auto) 0 0-0.2 10 ^3/uL Nucleated Red Blood Cells 0.1 % Sodium Level 142 136-145 mmol/L Potassium Level 4.1 3.5-5.1 mmol/L Chloride Level 97 L 98-107 mmol/L Carbon Dioxide Level 32 H 20-31 mmol/L Anion Gap 13 5-15 Blood Urea Nitrogen 21 9-23 mg/dL Creatinine 6.54 H 0.550-1.02 mg/dL Glomerular Filtration Rate Calc 7 >90 mL/min BUN/Creatinine Ratio 3.2 L 10.0-20.0 Serum Glucose 85 74-106 mg/dL Lactic Acid Level 1.2 0.4-2.0 mmol/L Calcium Level 9.8 8.7-10.4 mg/dL B-Type Natriuretic Peptide 707.66 0-100 pg/mL [facility] [id number] [place] [id number] Ph: [phone] DIAGNOSTIC IMAGING Diagnostic Imaging Report : [id number] Signed PATIENT: UNA BUSTILLOS ACCT: [id number] UNIT: [id number] : 1960 LOC: ER ROOM / BED: / AGE / SEX: 63 / F ADM STATUS: REG ER SERVICE 48 ORDERING PHYSICIAN: ZANE PAIZ PROCEDURE(s): CXR1 - CHEST XRAY 1 VIEW REASON: sob ORDER NUMBER(s): [id number], ACCESSION NUMBER(s): [id number] CHEST RADIOGRAPH Indication: sob Technique: Single frontal view of the chest was obtained COMPARISON: XY CHEST PORTABLE on DOS: 10/22/23, XY CHEST PORTABLE on DOS: 05/10/23, XY CHEST PORTABLE on DOS: 03/05/23, CHEST PORTABLE on DOS: 10/15/21, CXRP on DOS: 10/15/21 FINDINGS: Lines and Tubes: None. Right anterior chest wall dual lead cardiac pacing device. Lungs: Clear Pleura: No effusion. No pneumothorax. Cardiomediastinal contours: Unremarkable. Median sternotomy sutures. Bones: Unremarkable IMPRESSION: 1. No acute disease. ATED BY: JEREMY HORNE MD DICTATED DATE/TIME: 11/22/242215 SIGNED BY: JEREMY HORNE MD SIGNED DATE/TIME: 11/22/242215 CC: X-Ray, Labs, Meds, VS Comment Imaging: X-rays and CT scans were reviewed and interpreted by this provider, imaging shows no fractures and no pathological disease. Pending radiology review. Laboratory: Labs reviewed and interpreted by this provider. No significant abnormalities noted. Patient has prior medical visits reviewed. Med reconciliation performed Vital signs reviewed Spoke with Dr. Johnson at [facility] he will work on transferring the patient to anterior or [place]. Authorization number [id number] Time of 1ST Reevaluation: 21:59 Reevaluation 1ST: Unchanged Patient Education/Counseling: Diagnosis, Treatment Family Education/Counseling: No Family Present Sepsis Sepsis Reasesment Focused Exam Orders: Laboratory Tests 11/22/24 22:05: Lactic Acid Level 1.2 Departure 1 Departure Time of Disposition: 02:16 Impression: Primary Impression: ESRD on dialysis Additional Impressions: Shortness of breath CHF (congestive heart failure) Qualified Codes: I50.22 - Chronic systolic (congestive) heart failure Disposition: 02 SHORT TERM HOSPITAL Condition: Stable Critical Care Note Critical Care Time?: No Stability Stability form required: No Heart Score Heart Score: Heart Score Response (Comments) Value History N/A 0 EKG N/A 0 Age N/A 0 Risk Factors N/A 0 Troponin N/A 0 Total 0 I personally scribed for ZANE PAIZP ([email or web address]) on 11/22/24 at 21:41. Electronically submitted by Kingston Fish ([email or web address]). I personally scribed for ZANE PAIZP ([email or web address]) on 11/23/24 at 00:46. Electronically submitted by Monster Fallon ([email or web address]). ZANE PAIZ Nov 22, 2024 21:41
--- NOTE | 2024-11-22 22:19 | DVH ---
CHEST RADIOGRAPH Indication: sob Technique: Single frontal view of the chest was obtained COMPARISON: XY CHEST PORTABLE on DOS: 10/22/23, XY CHEST PORTABLE on DOS: 05/10/23, XY CHEST PORTABLE on DOS: 03/05/23, CHEST PORTABLE on DOS: 10/15/21, CXRP on DOS: 10/15/21 FINDINGS: Lines and Tubes: None. Right anterior chest wall dual lead cardiac pacing device. Lungs: Clear Pleura: No effusion. No pneumothorax. Cardiomediastinal contours: Unremarkable. Median sternotomy sutures. Bones: Unremarkable IMPRESSION: 1. No acute disease.
[2024-11-22 22:27] LABS: Basophils # (auto) 0 10 ^3/uL (0-0.2); Basophils % (auto) 0.7 % (0.0-2.0); Eosinophils # (auto) 0 10 ^3/uL (0-0.8); Eosinophils % (auto) 0.6 % (0.0-7.0); Hematocrit 33.3 % (36.0-46.0); Hemoglobin 11.1 g/dL (12.2-16.2); Lymphocytes # (auto) 0.9 10 ^3/uL (0.4-5.4); Lymphocytes % (auto) 23.2 % (10.0-50.0); Mean Corpuscular Hemoglobin 30.2 pg (28.0-32.0); Mean Corpuscular Hgb Conc. 33.4 g/dL (32.0-36.0); Mean Corpuscular Volume 90.2 fL (80.0-100.0); Monocytes # (auto) 0.6 10 ^3/uL (0-1.3); Monocytes % (auto) 14.6 % (0.0-12.0); Neutrophils # (auto) 2.4 10 ^3/uL (1.6-8.6); Neutrophils % (auto) 60.9 % (37.0-80.0); Nucleated Red Blood Cells % 0.1 %; Platelet Count (auto) 184 10^3/uL (140-450); Red Blood Cells 3.69 10^6/uL (4.0-5.20); Red Cell Distribution Width 16.1 % (11.8-14.3); White Blood Cell 3.9 10^3/uL (4.4-10.8)
[2024-11-22 22:31] LABS: Potassium 4.1 mmol/L (3.5-5.1); Sodium 142 mmol/L (136-145)
[2024-11-22 22:32] LABS: Anion Gap 13 (5-15)
[2024-11-22 22:33] LABS: Calcium 9.8 mg/dL (8.7-10.4)
[2024-11-22 22:37] LABS: Glucose 85 mg/dL (74-106)
[2024-11-22 22:38] LABS: BUN/Creatinine Ratio 3.2 (10.0-20.0); Blood Urea Nitrogen 21 mg/dL (9-23)
[2024-11-22 22:46] LABS: Carbon Dioxide 32 mmol/L (20-31); Chloride 97 mmol/L (98-107)
[2024-11-23] MEDS: ACETAMINOPHEN 325 MG TAB PO ONE (03:47)
[2024-11-23] MEDS: ONDANSETRON ODT 4 MG TAB PO ONE (03:49)
[2024-11-23 03:58] VITALS: BP 145/68; PULSE 60; RESP 20; TEMP 98.3; O2SAT 100
--- NOTE | 2024-11-23 06:06 | ECG ---
[facility] Test Date: 2024-11-22 Test Time: 21:38:48 Pat Name: UNA BUSTILLOS Department: ED Room: Gender: F Quahogger: ERICK : 1960 Requested By: ZANE PAIZ Order Number: [id number] Reading MD: Too Stapleton Measurements Intervals [place] Rate: 64 P: 0 CT: 199 QRS: 74 QRSD: 100 T: 94 QT: 495 QTc: 511 Interpretive Statements Atrial-paced rhythm Probable LVH with secondary repol abnrm Anterior Q waves, possibly due to LVH Prolonged QT interval Baseline wander in lead(s) III,V1,V3,V4,V5 Electronically Signed On 11-24-2024 9:27:12 PDT by Too Stapleton Please click the below link to view image of tracing.
== END 2024-11-23 04:15 | disposition short-term general hospital (02) ==
LOC: ER 21:03
DX: I13.2 Hypertensive heart and chronic kidney disease with heart failure and with stage 5 chronic kidney disease, or end stage renal disease (principal); N18.6 End stage renal disease; R06.02 Shortness of breath; I50.22 Chronic systolic (congestive) heart failure; I48.91 Unspecified atrial fibrillation; Z90.710 Acquired absence of both cervix and uterus; Z99.2 Dependence on renal dialysis; Z87.42 Personal history of other diseases of the female genital tract
CPT/HCPCS: 36415; 71045; 80048; 83605; 83880; 84484; 85025; 93005; 99285; Q0162

== ENCOUNTER 2024-12-06 04:27 | Emergency (ER) | payer OTHER ==
[~2024-12-06] VITALS: Ht 167.6 cm; Wt 63.5 kg
--- NOTE | 2024-12-06 04:59 | ED.PDOC ---
History of Present Illness HPI Comments 64 year old female presents to the ED via EMS with a chief complaint of dizziness onset 2 days. Per EMS, patient woke up this morning for dialysis, was not able to due to dizziness and generalized weakness, called 911. Patient states she has been experiencing dizziness with generalized weakness for the past 2 days. Upon EMS arrival, BP was 93/57. PMHx ESRD, a-fib, CHF, HTN. Denies chest pain, shortness of breath, nausea, vomiting, diarrhea, headache, abdominal pain, dysuria. No other symptoms or modifying factors present at this time. Chief Complaint: Dizziness Time Seen by MD: 04:35 Primary Care Provider: VERN Reviewed Notes: Medications, Allergies Allergies: Coded Allergies: Acetaminophen (Verified Allergy, Unknown, 11/23/24) Hydrocodone (Verified Allergy, Unknown, 02/05/16) Morphine (Verified Allergy, Unknown, 10/15/21) Home Meds Active Scripts Nifedipine (Nifedipine Er) 30 Mg Tab, 60 MG PO DAILY for 30 Days, #60 TAB Prov:CARLOS RAMIREZ MD 05/27/24 Reported Medications Apixaban Base (ELIQUIS) 2.5 Mg Tab, 2.5 MG PO BID, TAB 05/25/24 Atorvastatin Calcium (ATORVASTATIN CALCIUM) 20 Mg Tab, 1 TAB PO DAILY, #30 TAB 5 Refills 05/25/24 Fluconazole (Fluconazole) 150 Mg Tab, 1 TAB PO ONCE 10/23/23 Cephalexin Monohydrate (Cephalexin) 500 Mg Cap, 1 CAP PO QID 10/23/23 Sevelamer Carbonate (Sevelamer Carbonate) 800 Mg Tab, 2 TAB PO TID 10/23/23 Warfarin Sodium (Warfarin Sodium) 2.5 Mg Tab, TAB PO 10/23/23 Mirtazapine (Mirtazapine Oral Disintegrating Tablet) 7.5 Mg Tab, 1 TAB PO 10/23/23 Amoxicillin Trihydrate (Amoxicillin) 500 Mg Cap, 2 CAP PO BID 10/23/23 Amlodipine Besylate (Amlodipine Besylate) 5 Mg Tab, 1 TAB PO DAILY 10/23/23 Amiodarone HCl (Amiodarone HCl) 200 Mg Tab, 0.5 TAB PO DAILY 10/23/23 Atorvastatin Calcium (ATORVASTATIN CALCIUM) 20 Mg Tab, 1 TAB PO DAILY 10/23/23 Ketoconazole (Ketoconazole) 2 % Cre, 1 APPLIC TOP BID 10/23/23 Coumarin (Coumarin) Pow, 1 XX, POW 10/22/23 Terazosin Hcl (Terazosin Hcl) 2 Mg Cap, 2 MG PO DAILY for 30 Days, MG 03/06/23 Clonidine Hydrochloride (Clonidine Hcl) 0.2 Mg/24 Hr Dis, 0.2 MG PO TID for 30 Days, MG 03/06/23 Nifedipine (Nifedipine Er) 90 Mg Tab, 1 TAB PO DAILY, #30 TAB 5 Refills 03/06/23 Losartan Potassium (Losartan Potassium) 100 Mg Tab, 100 MG PO DAILY for 30 Days, MG 03/06/23 Hydromorphone Hcl (Dilaudid) 2 Mg Tab, 2 MG PO Q6HPRN PRN for PAIN SCALE 7 THRU 10, TAB 03/06/23 Omeprazole (Gnp Omeprazole) 20 Mg Tab, 1 TAB PO DAILY@BREAKFAST, #90 TAB 1 Refill 03/06/23 Lorazepam (Lorazepam) 2 Mg Tab, 2 MG PO BID PRN for ANXIETY, TAB 03/06/23 Information Source: Patient, Emergency Med Personnel Mode of Arrival: EMS Severity: Moderate Timing: Days Duration: Since onset Prehospital treatment: None Past Medical History PAST MEDICAL HISTORY: AFIB, CHF, ESRD, HTN Surgical History: Hysterectomy, Thyroidectomy 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 History: Uterine Fibroids Family History Family History: Reviewed,noncontributory to illness Social History Smoker: Non-Smoker Alcohol: Denies ETOH Use Drugs: Denies Drug Use Lives In: Home Constitutional: reports: weakness; denies: chills, diaphoresis, fatigue, fever, malaise, sweats, others EENTM: denies: blurred vision, double vision, ear bleeding, ear discharge, ear drainage, ear pain, ear ringing, eye pain, eye redness, hearing loss, mouth pain, mouth swelling, nasal discharge, nose bleeding, nose congestion, nose pain, photophobia, tearing, throat pain, throat swelling, voice changes, others Respiratory: denies: cough, hemoptysis, orthopnea, SOB at rest, shortness of breath, SOB with excertion, stridor, wheezing, others Cardiovascular: denies: chest pain, dizzy spells, diaphoresis, Dyspnea on exertion, edema, irregular heart beat, left arm pain, lightheadedness, palpitations, PND, syncope, others Gastrointestinal: denies: abdomen distended, abdominal pain, blood streaked bowels, constipated, diarrhea, dysphagia, difficulty swallowing, hematemesis, melena, nausea, poor appetite, poor fluid intake, rectal bleeding, rectal pain, vomiting, others Genitourinary: denies: abnormal vagina bleeding, burning, dyspareunia, dysuria, flank pain, frequency, hematuria, incontinence, pain, , vagina discharge, urgency, others Neurological: reports: dizziness, weakness; denies: fainting, headache, left sided numbness, left sided weakness, numbness, paresthesia, pre-existing deficit, right sided numbness, right sided weakness, seizure, speech problems, tingling, tremors, others Musculoskeletal: denies: back pain, gout, joint pain, joint swelling, muscle pain, muscle stiffness, neck pain, others Integumetry: denies: bruises, change in color, change in hair/nails, dryness, laceration, lesions, lumps, rash, wounds, others Hematologic/Lymphatic: denies: anemia, blood clots, easy bleeding, easy bruising, swollen glands, others Endocrine: denies: excessive hunger, excessive sweating, excessive thirst, excessive urination, flushing, intolerance to cold, intolerance to heat, unexplained weight gain, unexplained weight loss, others Psychiatric: denies: anxiety, bipolar disorder, depression, hopeless, panic disorder, schizophrenia, sleepless, suicidal, others All Other Systems: Reviewed and Negative Physical Exam General Appearance: Moderate Distress, Normal HEENT: Normal ENT Inspection, Pharynx Normal, TMs Normal Neck: Full Range of Motion, Non-Tender, Normal, Normal Inspection Respiratory: Chest Non-Tender, Lungs Clear, No Accessory Muscle Use, No Respiratory Distress, Normal Breath Sounds Cardiovascular: No Edema, No JVD, No Murmur, No Gallop, Normal Peripheral Pulses, Regular Rate/Rhythm Breast Exam: Deferred Gastrointestinal: No Organomegaly, Non Tender, No Pulsatile Mass, Normal Bowel Sounds, Soft Genitalia: Deferred Pelvic: Deferred Rectal: Deferred Extremities: No calf tenderness, Normal capillary refill, Normal inspection, Normal range of motion, Non-tender, No pedal edema Musculoskeletal : Apperance: Normal Neurologic: Alert, campus recruiting coordinator II-XII nml as Tested, No Motor Deficits, Normal Affect, Normal Mood, No Sensory Deficits Cerebellar Function: Normal Reflexes: Normal Skin: Dry, Normal Color, Warm Peripheral Pulses: 3+ Radial (R), 3+ Radial (L) Lymphatic: No Adenopathy Was a procedure done? Was a procedure done?: No Differential Dx Considerations may include: Autonomic disorder Electrolyte imbalance X-Ray, Labs, Meds, VS Vital Signs Date Time Temp Pulse Resp B/P (MAP) Pulse Ox O2 Delivery O2 Flow Rate FiO2 12/06/24 09:47 60 18 96 Room Air 12/06/24 09:47 97.7 60 18 105/48 (67) 96 97.7 12/06/24 08:08 98.9 60 20 109/52 (71) 99 98.9 12/06/24 07:18 60 12/06/24 05:35 60 12/06/24 04:35 98.0 62 18 93/56 (68) 97 98.0 12/06/24 04:29 60 Lab Test 12/06/24 06:17 12/06/24 05:15 Range/Units Troponin I High Sensitivity 18 22 </=34 ng/L White Blood Count 5.4 4.4-10.8 10^3/uL Red Blood Count 3.54 L 4.0-5.20 10^6/uL Hemoglobin 10.8 L 12.2-16.2 g/dL Hematocrit 32.4 L 36.0-46.0 % Mean Corpuscular Volume 91.7 80.0-100.0 fL Mean Corpuscular Hemoglobin 30.6 28.0-32.0 pg Mean Corpuscular Hemoglobin Concent 33.3 32.0-36.0 g/dL Red Cell Distribution Width 16.6 H 11.8-14.3 % Platelet Count 157 140-450 10^3/uL Mean Platelet Volume 9.6 6.9-10.8 fL Neutrophils (%) (Auto) 71.9 37.0-80.0 % Lymphocytes (%) (Auto) 11.9 10.0-50.0 % Monocytes (%) (Auto) 14.6 H 0.0-12.0 % Eosinophils (%) (Auto) 0.9 0.0-7.0 % Basophils (%) (Auto) 0.7 0.0-2.0 % Neutrophils # (Auto) 3.9 1.6-8.6 10 ^3/uL Lymphocytes # (Auto) 0.6 0.4-5.4 10 ^3/uL Monocytes # (Auto) 0.8 0-1.3 10 ^3/uL Eosinophils # (Auto) 0.1 0-0.8 10 ^3/uL Basophils # (Auto) 0 0-0.2 10 ^3/uL Nucleated Red Blood Cells 0.1 % Sodium Level 138 136-145 mmol/L Potassium Level 4.2 3.5-5.1 mmol/L Chloride Level 94 L 98-107 mmol/L Carbon Dioxide Level 29 20-31 mmol/L Anion Gap 15 5-15 Blood Urea Nitrogen 50 H 9-23 mg/dL Creatinine 9.45 H 0.550-1.02 mg/dL Glomerular Filtration Rate Calc 4 >90 mL/min BUN/Creatinine Ratio 5.3 L 10.0-20.0 Serum Glucose 94 74-106 mg/dL Calcium Level 8.9 8.7-10.4 mg/dL Patient alert. No sign of distress. Vitals stable. WBC within normal limits. Saturation pristine on room air. Heart rate within normal limits. No chest pain. No shortness a breath. Chronic kidney function. CT of the head was not done because her neurological examination was pristine. Explained to the patient. Was told to follow up with her primary care physician. Was told to come back if there is any problem. Time of 1ST Reevaluation: 05:05 Reevaluation 1ST: Unchanged Time of 2ND Reevaluation: 09:54 Reevaluation 2ND: Improved Patient Education/Counseling: Diagnosis, Treatment, Prognosis Family Education/Counseling: No Family Present SEPSIS Sepsis Screen Date sepsis recognized/suspect: Dec 06, 2024 Time Sepsis recognized/suspect: 0440 Recent Procedure: No On Antibiotic Therapy: No Respiratory Rate >20: No Heart Rate >90: No Temp<36 C (96.8 F) or >38.3 C: No SBP <90 or MAP <65 mmHG: No New Acute Mental Status Change: No Is the patient on CPAP, BIPAP,: No Physician Orders Electrocardigram (12/06/24 07:35) Chest Portable (12/06/24 04:46) Vital Signs Date Time Temp Pulse Resp B/P (MAP) Pulse Ox O2 Delivery O2 Flow Rate FiO2 12/06/24 09:47 60 18 96 Room Air 12/06/24 09:47 97.7 60 18 105/48 (67) 96 97.7 12/06/24 08:08 98.9 60 20 109/52 (71) 99 98.9 12/06/24 07:18 60 12/06/24 05:35 60 12/06/24 04:35 98.0 62 18 93/56 (68) 97 98.0 12/06/24 04:29 60 Laboratory Tests Test 12/06/24 05:15 White Blood Count 5.4 10^3/uL (4.4-10.8) Departure 1 Departure Time of Disposition: 09:55 Impression: Primary Impression: Autonomic disorder Disposition: 01 HOME / SELF CARE / HOMELESS Condition: Good Discharged With: Self Critical Care Note Critical Care Time?: No Stability Stability form required: No Heart Score Heart Score: Heart Score Response (Comments) Value History Slightly Suspicious 0 EKG Normal 0 Age >65 2 Risk Factors 1 or 2 risk factors 1 Troponin Normal limit 0 Total 3 I personally scribed for SHAUN SULLIVAN MD ([email or web address]) on 12/06/24 at 04:59. Electronically submitted by Rebecca Rayo ([email or web address]). SHAUN SULLIVAN MD Dec 06, 2024 04:59 ERNIE CHILEL MD Dec 06, 2024 09:56
--- NOTE | 2024-12-06 05:37 | ECG ---
[facility] Test Date: 2024-12-06 Test Time: 05:35:58 Pat Name: UNA SONG Department: ED Room: Gender: F Pathological Technician: : 1960 Requested By: EMERGENCY EMERGENCY Order Number: [id number] Reading MD: Too Stapleton Measurements Intervals [place] Rate: 60 P: 0 [place]: 137 QRS: 87 QRSD: 176 T: 8 QT: 619 QTc: 619 Interpretive Statements Atrial-paced rhythm Left ventricular hypertrophy Lateral infarct, acute Prolonged QT interval Electronically Signed On 12-09-2024 19:56:21 PDT by Too Stapleton Please click the below link to view image of tracing.
[2024-12-06 05:53] LABS: Basophils # (auto) 0 10 ^3/uL (0-0.2); Basophils % (auto) 0.7 % (0.0-2.0); Eosinophils # (auto) 0.1 10 ^3/uL (0-0.8); Eosinophils % (auto) 0.9 % (0.0-7.0); Hematocrit 32.4 % (36.0-46.0); Hemoglobin 10.8 g/dL (12.2-16.2); Lymphocytes # (auto) 0.6 10 ^3/uL (0.4-5.4); Lymphocytes % (auto) 11.9 % (10.0-50.0); Mean Corpuscular Hemoglobin 30.6 pg (28.0-32.0); Mean Corpuscular Hgb Conc. 33.3 g/dL (32.0-36.0); Mean Corpuscular Volume 91.7 fL (80.0-100.0); Monocytes # (auto) 0.8 10 ^3/uL (0-1.3); Monocytes % (auto) 14.6 % (0.0-12.0); Neutrophils # (auto) 3.9 10 ^3/uL (1.6-8.6); Neutrophils % (auto) 71.9 % (37.0-80.0); Nucleated Red Blood Cells % 0.1 %; Platelet Count (auto) 157 10^3/uL (140-450); Red Blood Cells 3.54 10^6/uL (4.0-5.20); Red Cell Distribution Width 16.6 % (11.8-14.3); White Blood Cell 5.4 10^3/uL (4.4-10.8)
[2024-12-06 06:04] LABS: Potassium 4.2 mmol/L (3.5-5.1); Sodium 138 mmol/L (136-145)
[2024-12-06 06:05] LABS: Anion Gap 15 (5-15); Carbon Dioxide 29 mmol/L (20-31); Chloride 94 mmol/L (98-107)
[2024-12-06 06:06] LABS: Calcium 8.9 mg/dL (8.7-10.4)
[2024-12-06 06:11] LABS: BUN/Creatinine Ratio 5.3 (10.0-20.0); Glucose 94 mg/dL (74-106)
[2024-12-06 06:23] LABS: Blood Urea Nitrogen 50 mg/dL (9-23)
--- NOTE | 2024-12-06 06:26 | DVH ---
EXAM: XY CHEST PORTABLE HISTORY: dizziness COMPARISON: XY CHEST XRAY 1 VIEW on DOS: 11/22/24, XY CHEST PORTABLE on DOS: 10/22/23, XY CHEST PORTABL E on DOS: 05/10/23, XY CHEST PORTABLE on DOS: 03/05/23, CHEST PORTABLE on DOS: 10/15/21 TECHNIQUE: Portable AP view of the chest was performed. FINDINGS: No pneumothorax or consolidative infiltrates. There is central pulmonary vascular congestion. The he art is enlarged. There are postoperative changes of median sternotomy, left atrial appendage closure , and right chest pacemaker. The central pulmonary arteries may be ectatic. There are bilateral archana st implants. IMPRESSION: Cardiomegaly and postoperative changes of the heart with central pulmonary vascular congestion sugges tive of mild CHF.
--- NOTE | 2024-12-06 06:57 | ECG ---
[facility] Test Date: 2024-12-06 Test Time: 04:29:08 Pat Name: UNA SONG Department: ED Room: Gender: F Size Stamper: : 1960 Requested By: EMERGENCY EMERGENCY Order Number: [id number] Reading MD: Too Stapleton Measurements Intervals [place] Rate: 60 P: 0 ND: 138 QRS: 100 QRSD: 105 T: 212 QT: 494 QTc: 494 Interpretive Statements Right and left arm electrode reversal, interpretation assumes no reversal Atrial-paced rhythm Right axis deviation Consider left ventricular hypertrophy Nonspecific T abnormalities, lateral leads Borderline prolonged QT interval Electronically Signed On 12-09-2024 19:55:57 PDT by Too Stapleton Please click the below link to view image of tracing.
[2024-12-06 10:11] VITALS: BP 111/44; PULSE 60; RESP 16; TEMP 98; O2SAT 97
[2024-12-06] MEDS: SODIUM CHLORIDE 0.9% 500 ML IV ONE (10:15)
--- NOTE | 2024-12-07 10:57 | ECG ---
[facility] Test Date: 2024-12-06 Test Time: 07:18:26 Pat Name: UNA SONG Department: ER Room: Gender: F Animal Husbandman: NO : 1960 Requested By: EMERGENCY EMERGENCY Order Number: [id number] Reading MD: Too Stapleton Measurements Intervals [place] Rate: 60 P: 0 [place]: 142 QRS: 91 QRSD: 107 T: 14 QT: 513 QTc: 513 Interpretive Statements Atrial-paced rhythm Consider left ventricular hypertrophy ST depr, consider ischemia, inferior leads ST elevation, consider lateral injury Prolonged QT interval Electronically Signed On 12-09-2024 19:57:09 PDT by Too Stapleton Please click the below link to view image of tracing.
== END 2024-12-06 10:16 | disposition home or self-care (01) ==
LOC: EDBD 04:27 → ER 04:27
DX: G90.9 Disorder of the autonomic nervous system, unspecified (principal); I13.2 Hypertensive heart and chronic kidney disease with heart failure and with stage 5 chronic kidney disease, or end stage renal disease; I50.9 Heart failure, unspecified; N18.6 End stage renal disease; I48.91 Unspecified atrial fibrillation; Z79.899 Other long term (current) drug therapy; Z90.710 Acquired absence of both cervix and uterus; Z99.2 Dependence on renal dialysis; Z90.89 Acquired absence of other organs; Z88.5 Allergy status to narcotic agent; Z88.8 Allergy status to other drugs, medicaments and biological substances
CPT/HCPCS: 36415; 71045; 80048; 84484; 85025; 93005